=== PATIENT | male | born 1960 | race Caucasian/White ===

== ENCOUNTER 2019-03-18 09:50 | Inpatient (IN) | payer OTHER ==
[2019-03-11 15:44] LABS: BASOPHILS # (AUTO) 0.1 X10'3 (0-0.2); BASOPHILS % (AUTO) 0.8 % (0-1); EOSINOPHILS # (AUTO) 0.5 X10'3 (0-0.9); EOSINOPHILS % (AUTO) 5.1 % (0-6); LYMPHOCYTES # (AUTO) 3.1 X10'3 (1.1-4.8); LYMPHOCYTES % (AUTO) 29.8 % (21-51); MEAN CORPUSCULAR HEMOGLOBIN 34.2 PG (27.0-31.0); MEAN CORPUSCULAR HGB CONC 34.5 g/dL (33.0-36.5); MEAN PLATELET VOLUME 7.4 FL (7.4-10.4); MONOCYTES # (AUTO) 0.9 X10'3 (0-0.9); MONOCYTES % (AUTO) 8.9 % (2-12); NEUTROPHILS # (AUTO) 5.8 X10'3 (1.8-7.7); NEUTROPHILS % (AUTO) 55.4 % (42-75); PRE OP HEMATOCRIT 46.7 % (42.0-52.0); PRE OP HEMOGLOBIN 16.1 g/dL (14.0-17.9); PRE OP PLATELET COUNT 266 X10'3 (140-440); RED BLOOD COUNT 4.72 X10'6 (4.70-6.10); RED CELL DISTRIBUTION WIDTH 13.5 % (11.5-14.5)
[2019-03-11 16:00] LABS: PRE OP PROTIME 10.3 SECONDS (9.0-12.0)
[2019-03-11 16:17] LABS: ALBUMIN 3.9 G/DL (3.4-5.0); ALKALINE PHOSPHATASE 67 IU/L (46-116); BLOOD UREA NITROGEN 12 MG/DL (7-18); BUN/CREATININE RATIO 12.4 (5.4-32.0); CALCIUM 9.1 MG/DL (8.5-10.1); CHLORIDE 102 MMOL/L (99-107); CREATININE 0.97 MG/DL (0.60-1.10); PRE OP ALT 15 U/L (30-65); PRE OP ANION GAP 11 (8-16); PRE OP AST 17 U/L (10-37); PRE OP BILIRUB, TOTAL 0.4 MG/DL (0.0-1.0); PRE OP GLUCOSE 101 MG/DL (70-104); PRE OP POTASSIUM 4.1 MMOL/L (3.4-5.1); PRE OP SODIUM 137 MMOL/L (135-145); TOTAL CARBON DIOXIDE 23.9 MMOL/L (24-32); TOTAL PROTEIN 7.7 G/DL (6.4-8.2); eGFR 79 ML/MIN
[2019-03-18] VITALS (16 sets, daily range): BP systolic 99–132; BP diastolic 59–88
[~2019-03-18] VITALS: Ht 188 cm; Wt 97.2 kg
[~2019-03-18 09:50] MED LIST: NO HOME MEDS; albuterol 2.5 MG/3 ML nebule NEB ONE; cefazolin/dext.iso 2gm/50ml 50 ML IV ONE; famotidine 20mg tablet PO ONE; ringers solution, lacted 1,000 ML IV SCH; tranexamic acid inj. 1,000 MG in normal saline 100 ML IV ONE; vancomycin inj 1,500 MG in normal saline 300ml IV soln IV ONE
[2019-03-18] MEDS ORDERED: ceFAZolin 1000mg inj ONE (13:35)
[2019-03-18] MEDS ORDERED: vancomycin 1,000mg inj ONE (13:35)
[2019-03-18] MEDS ORDERED: tetracaine 1% (10mg/ml) pres. free inj. ONE (15:22)
[2019-03-18] MEDS ORDERED: fentaNYL/PF 50MCG/1 ML 2ML syringe ONE (15:23)
[2019-03-18] MEDS ORDERED: MIDAZolam 1mg/ml 10ml vial ONE (15:23)
[2019-03-18] MEDS ORDERED: ringers solution, lacted 1,000 ML IV SCH (16:18)
[2019-03-18] MEDS ORDERED: meperidine/PF 25mg/ml syringe IV PRN ×3 (16:20)
[2019-03-18] MEDS ORDERED: morphine 4 MG/ML inj SYRINge IV PRN ×2 (16:20)
[2019-03-18] MEDS ORDERED: proCHLORperazine 10 MG/2 ml inj IV PRN (16:20)
[2019-03-18] MEDS ORDERED: ondansetron/PF 4mg/2ml inj IV PRN ×2 (16:20→17:40)
[2019-03-18] MEDS ORDERED: propofol inj 20 ML IV ONE ×2 (17:03)
[2019-03-18] MEDS ORDERED: oxyCODONE IR 5mg (immed. release) tablet PO PRN (17:40)
[2019-03-18] MEDS ORDERED: HYDROmorphone inj. 0.5 MG/0.5 ML DISP.SYRIN IV PRN (17:40)
[2019-03-18] MEDS ORDERED: acetaminophen 325mg tablet PO PRN (17:40)
[2019-03-18] MEDS ORDERED: tranexamic acid inj. 1,000 MG in normal saline 100ml IV soln 100 ML IV ONE (17:40)
[2019-03-18] MEDS ORDERED: magnesium hydroxide 30ml (MOM) UD suspension PO PRN (17:40)
[2019-03-18] MEDS ORDERED: HYDROmorphone 1 mg/ml syringe IV PRN (17:40)
[2019-03-18] MEDS ORDERED: diphenhydrAMINE 25mg capsule PO PRN ×2 (17:40)
[2019-03-18] MEDS ORDERED: bisacodyl 10mg suppository rectal RC PRN (17:40)
--- NOTE | 2019-03-18 18:06 | NUR ---
Received from OR via BED, accompanied by Anesthesiologist DR HARPER and report given by Anesthesiologist. PT AWAKE, DENIES PAIN, LEFT HIP W/HIP WRAP, DRSG, ICE PACK CDI, ZAVALA CATHETER TO GRAVITY DRAINAGE W/YELLOW URINE IN BAG. LISA DRAIN W/GREEN LIGHT ILLUMINATION TO HIP, DERMATOME LEVEL T-11-12. Addendum: 03/18/19 at 1840 by Geovanna Henderson RN Amended: Links added.
--- NOTE | 2019-03-18 19:16 | NUR ---
Report called to receiving nurse. Transferred via BED 2 PT BELONGINGS BAGS, 1 WALKER, CELL PHONE W/SEISMOGRAPH OPERATOR HELPER SENT W/PT TO ROOM 4017. RN AT BEDSIDE TO RECEIVE PT, BLL, CALL LIGHT GIVEN, SIDE RAILS UP X2. Special Issues communicated to receiving nurse. YES. Addendum: 03/18/19 at 1941 by Geovanna Henderson RN Amended: Links added.
--- NOTE | 2019-03-18 19:38 | NUR ---
arrived to room 4017. VSS, IV inatct.
[2019-03-18] MEDS ORDERED: vancomycin/NS 1 GM ADD-VANTAGE 250 ML IV SCH (20:00)
[2019-03-18] MEDS ORDERED: sennosides 8.6mg tablet PO SCH (21:00)
[2019-03-18] MEDS: gabapentin 300mg capsule PO SCH (21:06)
[2019-03-18] MEDS: acetaminophen 325mg tablet PO SCH (21:07)
[2019-03-18] MEDS: potassium cl 20mEq in 1/2 NS 1,000 ML IV SCH (21:11)
[2019-03-18] MEDS: oxyCODONE IR 5mg (immed. release) tablet PO PRN (22:03)
[2019-03-18] MEDS: ceFAZolin 1GM/D5W- ADD-VANTAGE 50 ML IV SCH (23:40)
[2019-03-19] MEDS: potassium cl 20mEq in 1/2 NS 1,000 ML IV SCH ×2 (00:42→09:37)
[2019-03-19] MEDS: acetaminophen 325mg tablet PO SCH ×2 (01:56→07:34)
[2019-03-19] MEDS: oxyCODONE IR 5mg (immed. release) tablet PO PRN ×3 (02:03→10:01)
[2019-03-19 02:14] VITALS: BP 132/90
[2019-03-19 06:00] VITALS: BP 120/84
--- NOTE | 2019-03-19 06:00 | NUR ---
Patient in room ORTHO 4017. I have received report from Delmar and had the opportunity to ask questions and assume patient care.
--- NOTE | 2019-03-19 06:27 | NUR ---
reported to days. noted pt anxiety last no. Mike will evaluate.
[2019-03-19 06:30] LABS: BASOPHILS # (AUTO) 0.1 X10'3 (0-0.2); BASOPHILS % (AUTO) 0.4 % (0-1); EOSINOPHILS # (AUTO) 0.1 X10'3 (0-0.9); EOSINOPHILS % (AUTO) 1.1 % (0-6); HEMOGLOBIN 14.3 g/dl (14.0-17.9); LYMPHOCYTES # (AUTO) 2.1 X10'3 (1.1-4.8); LYMPHOCYTES % (AUTO) 16.5 % (21-51); MEAN CORPUSCULAR HEMOGLOBIN 33.9 PG (27.0-31.0); MEAN CORPUSCULAR VOLUME 99.7 FL (78-98); MEAN PLATELET VOLUME 7.2 FL (7.4-10.4); MONOCYTES # (AUTO) 0.9 X10'3 (0-0.9); MONOCYTES % (AUTO) 7.2 % (2-12); NEUTROPHILS # (AUTO) 9.6 X10'3 (1.8-7.7); NEUTROPHILS % (AUTO) 74.8 % (42-75); PLATELET COUNT 229 X10'3 (140-440); RED BLOOD COUNT 4.21 X10'6 (4.70-6.10); RED CELL DISTRIBUTION WIDTH 13.4 % (11.5-14.5); WHITE BLOOD COUNT 12.8 X10'3 (4.5-11.0)
[2019-03-19] MEDS: gabapentin 300mg capsule PO SCH (07:33)
[2019-03-19] MEDS: ceFAZolin 1GM/D5W- ADD-VANTAGE 50 ML IV SCH (07:34)
[2019-03-19] MEDS ORDERED: enoxaparin 40mg/0.4ml syringe SQ SCH (08:00)
[2019-03-19 10:26] VITALS: BP 114/72
--- NOTE | 2019-03-19 12:00 | NUR ---
Problems reprioritized. Patient report given, questions answered & plan of care reviewed with Magali HAMMOND.
--- NOTE | 2019-03-19 12:54 | NUR ---
Pt D/C with instructions, understanding of instructions and with all belongings with W/C accompanied by in W/C to private vehicle to follow up with surgeon.
[2019-03-19] MEDS ORDERED: celeCOXIB 100mg capsule PO SCH (20:00)
[2019-03-20] MEDS ORDERED: acetaminophen 325mg tablet PO PRN (17:40)
== END 2019-03-19 12:40 | disposition home or self-care (01) | DRG 470 ==
LOC: PAS IN 09:50 → EDSTATUS 15:00 → ORTHO 4S 19:20
PROVIDERS: ADMIT Orthopaedic Surgery; ATTEND Orthopaedic Surgery
PROC: 0SRB06A Replacement of Left Hip Joint with Oxidized Zirconium on Polyethylene Synthetic Substitute, Uncemented, Open Approach (ICD-10-PCS; principal; 2019-03-18 15:19)
DX: M16.12 Unilateral primary osteoarthritis, left hip (principal); M87.88 Other osteonecrosis, other site; G89.29 Other chronic pain; F17.210 Nicotine dependence, cigarettes, uncomplicated
CPT/HCPCS: 36415; 72170; 73502; 80053; 82948; 85025; 85610; 85730; 86885; 86900; 86901; 87081; 97110; 97116; 97162; A4215; A4338; A4618; A6449; A7000; C1758; C1776; G0378; J0690; J1170; J1650; J2250; J2704; J3010; J3370; J3480; J7120; Q0163

== ENCOUNTER 2019-06-22 14:04 | Emergency (ER) | payer OTHER ==
[~2019-06-22] VITALS: Ht 188 cm; Wt 97.7 kg
[~2019-06-22 14:04] MED LIST changes: +ATOR20TA66 PO; +CLOP75TA35 PO; +LISI2.5T2 PO; +METO25TA6 PO; +NICO-631 TD; +NICO-687 TD; -albuterol 2.5 MG/3 ML nebule NEB ONE; -cefazolin/dext.iso 2gm/50ml 50 ML IV ONE; -famotidine 20mg tablet PO ONE; -ringers solution, lacted 1,000 ML IV SCH; -tranexamic acid inj. 1,000 MG in normal saline 100 ML IV ONE; -vancomycin inj 1,500 MG in normal saline 300ml IV soln IV ONE
[2019-06-22 15:03] LABS: BASOPHILS # (AUTO) 0.1 X10'3 (0-0.2); BASOPHILS % (AUTO) 0.7 % (0-1); EOSINOPHILS # (AUTO) 0.2 X10'3 (0-0.9); EOSINOPHILS % (AUTO) 1.7 % (0-6); HEMATOCRIT 40.9 % (42.0-52.0); LYMPHOCYTES # (AUTO) 1.1 X10'3 (1.1-4.8); LYMPHOCYTES % (AUTO) 9.7 % (21-51); MEAN CORPUSCULAR HEMOGLOBIN 32.9 PG (27.0-31.0); MEAN CORPUSCULAR HGB CONC 34.3 g/dL (33.0-36.5); MEAN CORPUSCULAR VOLUME 95.7 FL (78-98); MEAN PLATELET VOLUME 6.9 FL (7.4-10.4); MONOCYTES # (AUTO) 0.7 X10'3 (0-0.9); MONOCYTES % (AUTO) 6.1 % (2-12); NEUTROPHILS # (AUTO) 9.1 X10'3 (1.8-7.7); NEUTROPHILS % (AUTO) 81.8 % (42-75); PLATELET COUNT 298 X10'3 (140-440); RED BLOOD COUNT 4.27 X10'6 (4.70-6.10); RED CELL DISTRIBUTION WIDTH 13.8 % (11.5-14.5); WHITE BLOOD COUNT 11.2 X10'3 (4.5-11.0)
[2019-06-22 15:14] LABS: ALANINE AMINOTRANSFERASE 24 U/L (12-78); ALBUMIN 3.7 G/DL (3.4-5.0); ALBUMIN/GLOBULIN RATIO 1.1 (1.1-1.5); ALKALINE PHOSPHATASE 94 IU/L (46-116); ANION GAP 9 (8-16); ASPARTATE AMINO TRANSFERASE 20 U/L (10-37); BILIRUBIN,TOTAL 0.6 MG/DL (0.1-1.0); BLOOD UREA NITROGEN 11 MG/DL (7-18); BUN/CREATININE RATIO 12.9 (5.4-32.0); CALCIUM 8.9 MG/DL (8.5-10.1); CHLORIDE 101 MMOL/L (99-107); CREATININE 0.85 MG/DL (0.60-1.10); GLUCOSE 114 MG/DL (70-104); POTASSIUM 4.2 MMOL/L (3.5-5.1); SODIUM 135 MMOL/L (135-145); TOTAL CARBON DIOXIDE 25.3 MMOL/L (24-32); TOTAL PROTEIN 7.2 G/DL (6.4-8.2); eGFR > 90 ML/MIN
[2019-06-22 17:17] VITALS: BP 116/75
== END 2019-06-22 17:19 | disposition home or self-care (01) ==
LOC: ER 14:05
DX: I20.9 Angina pectoris, unspecified (principal); I25.2 Old myocardial infarction; F17.200 Nicotine dependence, unspecified, uncomplicated; Z79.899 Other long term (current) drug therapy
CPT/HCPCS: 36415; 71045; 80053; 84484; 85025; 93005; 99285